=== PATIENT | female | born 1980 | race Caucasian/White ===

== ENCOUNTER 2023-01-26 16:41 | Observation (INO) | payer OTHER ==
[2023-01-26] MEDS ORDERED: Morphine 4 MG/ML VIAL ONE (17:25)
[2023-01-26] MEDS ORDERED: Ketorolac Tromethamine 30 MG/ML VIAL ONE (17:26)
[2023-01-26] MEDS ORDERED: Ondansetron PF 4 MG/2 ML Vial ONE (18:04)
[2023-01-26 22:16] VITALS: BMI 28.8
[2023-01-26] MEDS ORDERED: Ondansetron ODT 4 MG TAB SL PRN (22:30)
[2023-01-26] MEDS ORDERED: Ondansetron PF 4 MG/2 ML Vial IVP PRN (22:30)
[2023-01-26] MEDS ORDERED: Acetaminophen 325 MG TAB PO PRN (22:30)
[2023-01-26] MEDS: Morphine 4 MG/ML VIAL SLOW IVP PRN (22:33)
[2023-01-26] MEDS: Sodium Chloride 0.9% 1,000 ML IV SCH (22:34)
[2023-01-27 00:48] LABS: SARS-CoV-2 NAA Rapid Test Not Detected (NotDetected)
[2023-01-27] MEDS: Morphine 4 MG/ML VIAL SLOW IVP PRN (06:17)
[2023-01-27] MEDS: Sodium Chloride 0.9% 1,000 ML IV SCH (06:20)
[2023-01-27] MEDS ORDERED: Glucagon 1 MG/ML KIT ONE (08:41)
[2023-01-27] MEDS ORDERED: Iopamidol 30 ML ONE (08:42)
[2023-01-27] MEDS ORDERED: EPINEPHrine 1 MG/ML VIAL ONE (08:42)
[2023-01-27] MEDS ORDERED: Bupivacaine 0.25% HCL 30 ML VIAL ONE (08:42)
[2023-01-27] MEDS ORDERED: FLU VACC QS2023-24(6MOS UP)/PF 60 MCG/0.5 ML SYRINGE IM ONE (09:00)
[2023-01-27] MEDS: Morphine 2 MG/ML VIAL SLOW IVP PRN ×3 (10:02→18:52)
[2023-01-27] MEDS ORDERED: Rocuronium Bromide 10 MG/ML (10ML VIAL) ONE (10:18)
[2023-01-27] MEDS ORDERED: PROPOFOL 20 ML ONE (10:18)
[2023-01-27] MEDS ORDERED: fentaNYL 50 mcg/mL 1 mL Vial ONE ×4 (10:19→13:05)
[2023-01-27] MEDS ORDERED: SUGAMMADEX SODIUM 200 MG/2 ML VIAL ONE (10:22)
[2023-01-27] MEDS ORDERED: CEFAZOLIN 2 GM VIAL ONE (10:48)
[2023-01-27] MEDS ORDERED: Dexamethasone 4 mg/ml Vial ONE (11:39)
[2023-01-27] MEDS ORDERED: Ondansetron PF 4 MG/2 ML Vial ONE (11:39)
[2023-01-27] MEDS ORDERED: Ketorolac Tromethamine 30 MG/ML VIAL ONE (11:40)
[2023-01-27] MEDS ORDERED: hydrALAZINE 20 MG/ML VIAL SLOW IVP PRN (13:38)
[2023-01-27] MEDS ORDERED: Dextrose 50% Abboject 50 ML SYRINGE SLOW IVP PRN (13:38)
[2023-01-27] MEDS ORDERED: Glucagon 1 MG/ML KIT IM PRN (13:38)
[2023-01-27] MEDS ORDERED: Calcium Carbonate 500 MG ChewTAB PO PRN (13:38)
[2023-01-27] MEDS ORDERED: Ipratropium/Albuterol 3 ML NEB NEB PRN (13:38)
[2023-01-27] MEDS ORDERED: Mag-Al 1200 mg/1200 mg/30 ML UDCUP PO PRN (13:38)
[2023-01-27] MEDS ORDERED: Promethazine HCl 25 MG/ML VIAL IM PRN (13:38)
[2023-01-27] MEDS ORDERED: Dextrose 5% in Water 1,000 ML IV PRN (13:38)
[2023-01-27] MEDS ORDERED: Ondansetron PF 4 MG/2 ML Vial IVP PRN (13:38)
[2023-01-27] MEDS: HYDROcodone/Acetaminophen 10/325 mg Tablet PO PRN ×2 (14:56→22:43)
[2023-01-27] MEDS: D5 1/2 NS w/20 mEq KCL 1,000 ML IV SCH ×2 (15:11→23:29)
[2023-01-27] MEDS: Ketorolac Tromethamine 30 MG/ML VIAL IVP SCH ×2 (17:24→23:30)
[2023-01-28] MEDS: HYDROcodone/Acetaminophen 10/325 mg Tablet PO PRN ×2 (04:29→10:59)
[2023-01-28] MEDS: Ketorolac Tromethamine 30 MG/ML VIAL IVP SCH (06:46)
[2023-01-28] MEDS: D5 1/2 NS w/20 mEq KCL 1,000 ML IV SCH (08:00)
[2023-01-28 09:44] VITALS: BP 123/71; TEMP 98.3
== END 2023-01-28 12:50 | disposition home or self-care (01) ==
LOC: CSHERS 16:41 → CSHTELE 22:13
PROVIDERS: ADMIT Surgery; ATTEND Surgery
PROC: 0FT44ZZ Resection of Gallbladder, Percutaneous Endoscopic Approach (ICD-10-PCS; principal; 2023-01-28)
PROC: BF13YZZ Fluoroscopy of Gallbladder and Bile Ducts using Other Contrast (ICD-10-PCS; 2023-01-28)
DX: K80.64 Calculus of gallbladder and bile duct with chronic cholecystitis without obstruction (principal)
CPT/HCPCS: 47532; 76705; 88304; 96374; 96375; 96376; C1889; G0378; J0171; J1100; J1611; J1885; J2270; J2272; J2405; J2704; J3010; J3480; J7050; Q9967; S0020; U0002